=== PATIENT | female | born 1985 | race Caucasian/White ===

== ENCOUNTER 2023-01-05 13:50 | Emergency (ER) | payer MEDICAID ==
[~2023-01-05] VITALS: Ht 162.6 cm; Wt 67.0 kg
[2023-01-05] MEDS ORDERED: LIDOCAINE HCL 1% 20ML VIAL (Pyxis) INJ INFIL ONE (15:45)
[2023-01-05 17:58] VITALS: BP 120/88
== END 2023-01-05 18:00 | disposition home or self-care (01) ==
LOC: ER 13:50
DX: S01.112A Laceration without foreign body of left eyelid and periocular area, initial encounter (principal); X58.XXXA Exposure to other specified factors, initial encounter; Y93.89 Activity, other specified; Y92.89 Other specified places as the place of occurrence of the external cause; Y99.8 Other external cause status
CPT/HCPCS: 12011; 99283; Z7610